=== PATIENT | female | born 1950 | race Caucasian/White ===

== ENCOUNTER → 2023-06-18 13:45 | Outpatient (REF) | payer MEDICARE, SELFPAY | LOC: WDC 13:45 | PROVIDERS: ATTENDING PHYSICIAN Nurse Practitioner | DX: M85.89 Other specified disorders of bone density and structure, multiple sites (principal); Z12.31 Encounter for screening mammogram for malignant neoplasm of breast | CPT/HCPCS: 77063; 77067; 77080 ==